=== PATIENT | female | born 1965 | race Caucasian/White ===

== ENCOUNTER 2017-06-01 12:43 | Emergency (ER) | payer SELFPAY ==
[~2017-06-01] VITALS: Ht 160 cm; Wt 90.0 kg
[~2017-06-01 12:43] MED LIST: ACYC-101 PO; ALPR.5 PO; NEUR300C PO; PAXI20TA PO; VALT1TAB PO
[2017-06-01 12:50] VITALS: BP 132/60; PULSE 94; RESP 16; TEMP 98; O2SAT 96
[2017-06-01] MEDS ORDERED: BACT800T5 PO (13:35)
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
[2017-06-01] MEDS ORDERED: PAXI10TA2 PO (13:39)
== END 2017-06-01 14:06 | disposition home or self-care (01) ==
LOC: PHED 12:43 → PHEFT 14:06
DX: S40.862A Insect bite (nonvenomous) of left upper arm, initial encounter (principal); W57.XXXA Bitten or stung by nonvenomous insect and other nonvenomous arthropods, initial encounter; K50.90 Crohn's disease, unspecified, without complications
CPT/HCPCS: 99283